=== PATIENT | male | born 1990 | race Caucasian/White ===

== ENCOUNTER 2020-08-16 21:32 | Emergency (ER) | payer OTHER, SELFPAY ==
--- NOTE | 2020-08-16 21:37 | ED.GIBLEED ---
HPI - GI Bleed General Chief complaint: Fever Stated complaint: states rectal bleeding past week, fever Time Seen by Provider: 08/16/20 21:35 Source: patient Mode of arrival: Ambulatory Limitations: no limitations History of Present Illness HPI Narrative: 22-year-old male nonsmoker with noncontributory medical history presents with a chief complaint of painless bright red bleeding per rectum with bowel movements over the course of the past week. He denies any pain. He is not dizzy nor weak or lightheaded. He denies any runny nose, sore throat or cough. Denies chest pain or shortness of breath. He denies any recent travel, antibiotic use or exposure to bad food. He states that over the course of the day he began feeling the chills and getting achy and noticed his temperature reached 102.6. at this point he decided to come see us in the ED for evaluation. MD complaint: blood streaked stool Onset (ago): day(s) Severity: mild Relieving factors: none Exacerbating factors: none Associated symptoms: fever and chills Treatments Prior to Arrival: none Related Data Allergies Allergy/AdvReac Type Severity Reaction Status Date / Time No Known Drug Allergies Allergy Verified 08/17/20 00:13 Review of Systems Constitutional Constitutional: Reports chills, Denies fatigue, Reports fever(s), Denies frequent falls, Denies lethargy and Denies weakness Eyes Eyes: Denies change in vision, Denies eye discharge, Denies irritation and Denies loss of vision ENT Ears, Nose, Mouth, and Throat: Denies change in voice, Denies dizziness, Denies neck pain, Denies sore throat and Denies throat swelling Cardiovascular Cardiovascular: Denies chest pain, Denies irregular heart rhythm, Denies lightheadedness, Denies palpitations, Denies dyspnea, Denies dyspnea on exertion and Denies orthopnea Respiratory Respiratory: Denies cough, Denies dyspnea, Denies dyspnea on exertion and Denies wheezing Gastrointestinal Gastrointestinal: Denies abdominal pain, Reports hematochezia, Denies change in bowel habits, Denies diarrhea, Denies nausea and Denies vomiting Musculoskeletal Musculoskeletal: Denies neck pain and Denies numbness Integumentary/Breasts Skin/Breast: Denies pruritus, Denies erythema, Denies rash and Denies wounds Neurologic Neurologic: Denies behavioral changes, Denies confusion, Denies dizziness, Denies frequent falls, Denies loss of vision, Denies numbness and Denies weakness Psychiatric Psychiatric: Denies anxiety, Denies behavioral changes, Denies confusion, Denies depression, Denies homicidal ideation and Denies suicidal ideation Endocrine Endocrine: Denies fatigue, Denies flushing and Denies palpitations Hematologic/Lymphatic Hematologic/Lymphatic: Denies easy bruising Allergic/Immunologic Allergic/Immunologic: Denies urticaria, Denies throat swelling and Denies wheezing Patient History Social History Smoking Status: Never smoker Smoking Status: Never smoker alcohol intake frequency: 0-2 drinks per day Substance Use Type: does not use Exam Initial Vital Signs Initial Vital Signs: Vital Signs Temperature 102.6 F H 08/16/20 22:03 Pulse Rate 146 H 08/16/20 22:03 Respiratory Rate 18 08/16/20 22:03 Blood Pressure 146/85 H 08/16/20 22:03 Pulse Oximetry 97 08/16/20 22:03 Const General: cooperative and well developed Nutritional Appearance: well nourished [facility] Head: normocephalic and atraumatic Ears: external ears normal and TM's normal bilaterally Nose: external nose normal and No nasal discharge Face and sinus: sinuses nontender, face symmetric, no sinus tenderness and No dry mucous membranes Mouth: oral mucosae normal and moist mucous membranes Teeth and gingiva: dentition normal Throat: tonsils normal and uvula midline Eyes General: appearance normal, both eyes and all related structures Eyelids: eyelids normal Conjunctivae: conjunctivae normal Sclera: sclerae normal Pupils: PERRL EOM: EOM intact bilaterally Neck Neck: normal visual inspection, trachea midline, No lymphadenopathy, No midline deformity and No JVD Lymphatic: No lymphedema Chest Chest: normal inspection of the chest Resp Effort & Inspection: normal respiratory effort, able to speak in complete sentences, no respiratory distress and no use of accessory muscles Auscultation: clear to auscultation bilaterally, no rales, no rhonchi and no wheezes Cardio Rate: regular rate Rhythm: regular rhythm Heart Sounds: no click, no gallops, no murmurs and no rubs Pulses: normal peripheral pulses GI Inspection: non-distended Palpation: soft, no hepatosplenomegaly, No guarding, No pulsatile mass and No tender Auscultation: normal bowel sounds Back/Spine/Pelvis Back: No CVA tenderness Cervical Spine: cervical ROM normal and No pain with cervical ROM Thoracic/Lumbar Spine: thoracic and lumbar spine normal to inspection Skin General: no rashes or lesions noted, No jaundice and No petechiae Neuro General: patient alert, patient oriented x3, gait normal and no focal motor deficits Speech: speech normal Extrem General: full ROM, no clubbing, cyanosis or edema, no pedal edema and no calf tenderness Psych Appearance: well kempt Mental Status: mental status grossly normal Attitude: cooperative Thought Content: normal and suicidality Judgment: judgment good Course Orders Ordered: ED Orders 08/16/20 22:04 EKG-12 Lead Stat 08/16/20 22:15 Complete Blood Count AUTO DIFF Stat Comprehensive Metabolic Panel Stat Lactate (Lactic Acid) Stat Lipase Stat 08/16/20 22:30 Blood Culture Stat 08/17/20 00:56 D Dimer Stat 08/17/20 01:19 CT angio chest PE protocol Stat 08/17/20 01:20 CT abdomen pelvis w con Stat 08/17/20 03:20 GI Panel (Film Array) Stat Sodium Chloride (Normal Saline 0.9%) 1,000 mls @ 125 mls/hr IV CONT KAYE Last Admin: 08/17/20 00:04 Dose: 125 mls/hr Documented by: Infusion: 08/17/20 00:04 Dose: 125 mls/hr Documented by: Admin: 08/16/20 22:15 Dose: 125 mls/hr Documented by: GLO Discontinued Medications Acetaminophen (Acetaminophen 325 Mg Tablet) 975 mg PO NOW ONE Stop: 08/17/20 03:00 Last Admin: 08/17/20 03:09 Dose: 975 mg Documented by: JUNIOR Sodium Chloride (Normal Saline 0.9%) 1,000 mls @ 1,000 mls/hr IV BOLUS ONE Stop: 08/17/20 00:41 Last Admin: 08/17/20 03:09 Dose: 1,000 mls/hr Documented by: JUNIOR Levofloxacin (Levaquin) 500 mg in 100 mls @ 100 mls/hr IV NOW ONE Stop: 08/17/20 03:58 Last Infusion: 08/17/20 04:40 Dose: 0 mls/hr Documented by: Admin: 08/17/20 03:09 Dose: 100 mls/hr Documented by: JUNIOR Ketorolac Tromethamine (Ketorolac 30 Mg/Ml Vial) 15 mg IV NOW ONE Stop: 08/16/20 23:43 Last Admin: 08/17/20 00:05 Dose: 15 mg Documented by: JUNIOR Ketorolac Tromethamine (Ketorolac 30 Mg/Ml Vial) 15 mg IV NOW ONE Stop: 08/17/20 03:00 Last Admin: 08/17/20 03:09 Dose: 15 mg Documented by: JUNIOR Vital Signs Vital signs: Vital Signs - 8 hr 08/16/20 22:03 08/16/20 23:13 08/16/20 23:30 Temperature 102.6 F H Pulse Rate 146 H 122 H 129 H Respiratory Rate 18 Blood Pressure 146/85 H Pulse Oximetry 97 100 100 08/17/20 00:00 08/17/20 00:08 08/17/20 00:33 Temperature 100.4 F H Pulse Rate 122 H 125 H 119 H Respiratory Rate 16 Blood Pressure 116/66 Pulse Oximetry 99 100 92 08/17/20 01:00 08/17/20 01:30 08/17/20 02:00 Temperature Pulse Rate 123 H 118 H 115 H Respiratory Rate Blood Pressure Pulse Oximetry 98 98 96 08/17/20 02:30 08/17/20 03:00 Temperature 101.8 F H Pulse Rate 118 H 112 H Respiratory Rate Blood Pressure Pulse Oximetry 97 97 MDM - GI Bleed Lab Data Result diagrams: 08/16/20 22:15 08/16/20 22:15 Labs: Lab Results 08/16/20 08/16/20 08/16/20 Range/Units 22:15 22:15 22:15 WBC 3.1 L (4.5-11.0) X10^3/uL RBC 4.72 (4.5-5.9) X10^6/uL Hgb 14.5 (13.5-17.5) g/dL Hct 42.5 (41-53) % MCV 89.9 (80-100) fL MCH 30.6 (26-34) PG MCHC 34.1 (30-36) % RDW 13.9 (11.6-14.8) % Plt Count 128 L (150-400) X10^3/uL Neut % (Auto) 76.4 H (50-75) % Lymph % (Auto) 12.9 L (25-40) % [place] % (Auto) 10.1 (3-14) % Eos % (Auto) 0.3 L (2-4) % Baso % (Auto) 0.3 (0-2) % Neut # (Auto) 2300 (9676-7314) /uL Lymph # (Auto) 400 L (7187-2222) /uL [place] # (Auto) 300 (0-900) /uL Eos # (Auto) 0 (0-450) /uL Baso # (Auto) 0 (0-100) /uL D-Dimer (<230) ng/mL Sodium 141 (137-145) mmol/L Potassium 4.1 (3.4-5.1) mmol/L Chloride 105 (98-107) mmol/L Carbon Dioxide 25 (22-32) mmol/L BUN 11 (9-20) mg/dL Creatinine 1.05 (0.66-1.25) mg/dL Estimated GFR > 60.0 (>60) mL/min BUN/Creatinine Ratio 10.5 (6-22) Glucose 104 H (70-100) mg/dL Lactate 1.3 (0.7-2.1) mmol/L Calcium 9.2 (8.4-10.2) mg/dL Total Bilirubin 0.7 (0.2-1.3) mg/dL AST 47 (17-59) IU/L ALT 102 H (<50) IU/L Alkaline Phosphatase 51 (38-126) U/L Total Protein 7.9 (6.3-8.2) g/dL Albumin 4.7 (3.5-5.0) g/dL Globulin 3.2 (1.7-4.1) g/dL Albumin/Globulin Ratio 1.5 (1.0-2.8) Lipase 75 (23-300) U/L Stl C. cayetanensis PCR (Not Detect) Stool Rotavirus (PCR) (Not Detect) Stool Adenovirus (PCR) (Not Detect) Stool Astrovirus (PCR) (Not Detect) Stool Cryptosporidium PCR (Not Detect) Stl E.coli Shiga Tox PCR (Not Detect) St Sh/Enteroin Ecoli PCR (Not Detect) Stool E coli O157 PCR Stl Enterotoxigenic E PCR (Not Detect) Stool EPEC (PCR) (Not Detect) Stl E. histolytica PCR (Not Detect) Stool Giardia Lamblia PCR (Not Detect) Stool Sapovirus (PCR) (Not Detect) Stl P. shigelloides PCR (Not Detect) St Y.enterocolitica PCR (Not Detect) Stool Vibrio (PCR) (Not Detect) Stl Vibrio cholerae PCR (Not Detect) Stl Enteroaggr Ecoli PCR (Not Detect) Stl Norovirus GI/GII PCR (Not Detect) Campylobacter (PCR) (Not Detect) C. difficile Tox (PCR) (Not Detect) Salmonella (PCR) (Not Detect) 08/16/20 08/17/20 Range/Units 22:15 03:20 WBC (4.5-11.0) X10^3/uL RBC (4.5-5.9) X10^6/uL Hgb (13.5-17.5) g/dL Hct (41-53) % MCV (80-100) fL MCH (26-34) PG MCHC (30-36) % RDW (11.6-14.8) % Plt Count (150-400) X10^3/uL Neut % (Auto) (50-75) % Lymph % (Auto) (25-40) % [place] % (Auto) (3-14) % Eos % (Auto) (2-4) % Baso % (Auto) (0-2) % Neut # (Auto) (8053-8638) /uL Lymph # (Auto) (8983-2034) /uL [place] # (Auto) (0-900) /uL Eos # (Auto) (0-450) /uL Baso # (Auto) (0-100) /uL D-Dimer 292 H (<230) ng/mL Sodium (137-145) mmol/L Potassium (3.4-5.1) mmol/L Chloride (98-107) mmol/L Carbon Dioxide (22-32) mmol/L BUN (9-20) mg/dL Creatinine (0.66-1.25) mg/dL Estimated GFR (>60) mL/min BUN/Creatinine Ratio (6-22) Glucose (70-100) mg/dL Lactate (0.7-2.1) mmol/L Calcium (8.4-10.2) mg/dL Total Bilirubin (0.2-1.3) mg/dL AST (17-59) IU/L ALT (<50) IU/L Alkaline Phosphatase (38-126) U/L Total Protein (6.3-8.2) g/dL Albumin (3.5-5.0) g/dL Globulin (1.7-4.1) g/dL Albumin/Globulin Ratio (1.0-2.8) Lipase (23-300) U/L Stl C. cayetanensis PCR Not detected (Not Detect) Stool Rotavirus (PCR) Not detected (Not Detect) Stool Adenovirus (PCR) Not detected (Not Detect) Stool Astrovirus (PCR) Not detected (Not Detect) Stool Cryptosporidium PCR Not detected (Not Detect) Stl E.coli Shiga Tox PCR Not detected (Not Detect) St Sh/Enteroin Ecoli PCR Not detected (Not Detect) Stool E coli O157 PCR Not Reportable Stl Enterotoxigenic E PCR Not detected (Not Detect) Stool EPEC (PCR) Not detected (Not Detect) Stl E. histolytica PCR Not detected (Not Detect) Stool Giardia Lamblia PCR Not detected (Not Detect) Stool Sapovirus (PCR) Not detected (Not Detect) Stl P. shigelloides PCR Not detected (Not Detect) St Y.enterocolitica PCR Not detected (Not Detect) Stool Vibrio (PCR) Not detected (Not Detect) Stl Vibrio cholerae PCR Not detected (Not Detect) Stl Enteroaggr Ecoli PCR Not detected (Not Detect) Stl Norovirus GI/GII PCR Not detected (Not Detect) Campylobacter (PCR) Not detected (Not Detect) C. difficile Tox (PCR) Not detected (Not Detect) Salmonella (PCR) Not detected (Not Detect) Urine Dip Bedside Urine Glucose Negative Bedside Urine Bilirubin - Negative Bedside Urine Ketone - Negative Urine Specific [place] 1.015 Bedside Urine Occult Blood - Negative Bedside Urine pH 6 Bedside Urine Protein - Negative Bedside Urine Urobilinogen - Negative Bedside Urine Nitrite - Negative Bedside Urine Leukocytes - Negative Esterase Imaging Data CT scan - chest: Radiologist's Impression: No pneumonia or PE CT scan - abdomen/pelvis: Radiologist's Impression: No acute findings. No infectious or inflammatory changes MDM Narrative Medical decision making narrative: 30-year-old male with painless bright red rectal bleeding and fever with tachycardia has had a very extensive evaluation with largely limited results. For the duration of his visit he had essentially no complaints, no headache or neck pain, chest pain or shortness of breath, no abdominal pain or urinary complaints. No rash or skin pain. Physical exam is quite unremarkable other than tachycardia. Over the course of the visit, with a few L of fluid and fever control his heart rate is down into the upper 90s and low 100s. Multiple diagnoses considered such as pneumonia versus COVID versus other viral syndrome versus bowel infection versus appendicitis versus urine infection versus infectious diarrhea such as Shigella, Campylobacter, E coli or others. These are all thought unlikely lack of diagnostic findings or physical exam and elements of the patient's history. Meningitis and cerebrospinal fluid infection considered but thought unlikely given lack of headache, neck pain, confusion. Patient plans to leave here and had back to [place], he has established with a primary care provider and will call for close follow-up. He understands the importance of close follow-up and that even though we did an extensive workup we may be too early in the process to be able to see a clear diagnosis. We talked extensively about return precautions which he understands as evidenced by his ability to verbalize them back to me. He has had his questions answered to his apparent satisfaction Critical Care Time Critical Care Time Critical Care Time: Yes Total Critical Care Time: 30 Attestation: The high probability of a clinically significant, sudden or life threatening deterioration of the [CV] system(s) required my full and direct attention, intervention and personal management. The aggregate critical care time was [30] minutes. This time is in addition to time spent performing reported procedures but includes the following: [x] Data Review and interpretation [x Patient assessment and monitoring of vital signs [x] Documentation [x] Medication orders and management Discharge Plan Departure Patient Disposition: Home Clinical Impression: Fever of unknown origin, Bright red rectal bleeding Instructions: DI for Fever (Symptom) -- Adult Activity Restrictions/Additional Instructions: *You have been diagnosed with [fever and bright red rectal bleeding without evidence of an obvious cause based the extensive workup we performed.] *What to do: *Please continue to take your regular medications as directed. [ ] New medication prescriptions sent to your pharmacy: [ ] [ ] New medication written as a paper prescription [ x] No new medications given *Please follow up with your primary care provider in 2-3 days, call for an appointment. Let them know you were seen in the Emergency Department and that we ask that you be seen in follow up. We will electronically transmit a record of today's note if your PCP is in our system *If you do not have a primary care provider please contact the [facility] Resource line at [phone]. They will ask some questions about your medical history and help get you set up with a doctor in the community. *Return to Emergency Department if you should have any new, worsening or concerning symptoms, such as [fever greater than 102 F, shaking chills, development of severe pain, persistent vomiting or other bothersome symptoms]
[2020-08-16 22:03] VITALS: BP 146/85; PULSE 146; RESP 18; TEMP 39.2; O2SAT 97; BMI 31.3
[2020-08-16] MEDS: SODIUM CHLORIDE 0.9% 1,000 ML 125 ML IV (22:15)
[2020-08-16 22:28] LABS: Add Manual Diff / Slide Review NO; Basophils Absolute Auto 0 /uL (0-100); Basophils Percent Auto 0.3 % (0-2); Eosinophils Absolute Auto 0 /uL (0-450); Eosinophils Percent Auto 0.3 % (2-4); Hematocrit 42.5 % (41-53); Hemoglobin 14.5 g/dL (13.5-17.5); Lymphocytes Absolute Auto 400 /uL (1100-4500); Lymphocytes Percent Auto 12.9 % (25-40); Mean Corpuscular HGB Conc 34.1 % (30-36); Mean Corpuscular Hemoglobin 30.6 PG (26-34); Mean Corpuscular Volume 89.9 fL (80-100); Monocytes Absolute Auto 300 /uL (0-900); Monocytes Percent Auto 10.1 % (3-14); Neutrophils Absolute Auto 2300 /uL (1500-7000); Neutrophils Percent Auto 76.4 % (50-75); Platelet Count 128 X10^3/uL (150-400); Red Blood Cell Count 4.72 X10^6/uL (4.5-5.9); Red Cell Distribution Width 13.9 % (11.6-14.8); White Blood Cell Count 3.1 X10^3/uL (4.5-11.0)
[2020-08-16 22:34] LABS: Lactate (Lactic Acid) 1.3 mmol/L (0.7-2.1)
[2020-08-16 22:35] LABS: Alanine Aminotransferase 102 IU/L (<50); Albumin 4.7 g/dL (3.5-5.0); Albumin Globulin Ratio 1.5 (1.0-2.8); Alkaline Phosphatase 51 U/L (38-126); Aspartate Aminotransferase 47 IU/L (17-59); BUN Creatinine Ratio 10.5 (6-22); Bilirubin Total 0.7 mg/dL (0.2-1.3); Blood Urea Nitrogen 11 mg/dL (9-20); Calcium 9.2 mg/dL (8.4-10.2); Carbon Dioxide 25 mmol/L (22-32); Chloride 105 mmol/L (98-107); Estimated Glomerular Filt Rate > 60.0 mL/min (>60); Globulin 3.2 g/dL (1.7-4.1); Glucose 104 mg/dL (70-100); HEMOLYSIS < 15 (0-50); Lipase 75 U/L (23-300); Potassium 4.1 mmol/L (3.4-5.1); Sodium 141 mmol/L (137-145); Total Protein 7.9 g/dL (6.3-8.2)
[2020-08-16 23:13] VITALS: PULSE 122; O2SAT 100
[2020-08-16 23:30] VITALS: PULSE 129; O2SAT 100
[2020-08-17] VITALS (10 sets, daily range): BP systolic 116–133; BP diastolic 66–79; PULSE 102–125; RESP 15–16; TEMP 37.3–38.8; O2SAT 92–100
[2020-08-17] MEDS: SODIUM CHLORIDE 0.9% 1,000 ML 125 ML IV (00:04)
[2020-08-17] MEDS: KETOROLAC 30 MG/ML VIAL 15 MG IV ×2 (00:05→03:09)
[2020-08-17 01:17] LABS: D Dimer 292 ng/mL (<230)
--- NOTE | 2020-08-17 01:19 | DI.CT.S_ITS ---
PROCEDURE: CT ANGIO CHEST PE PROTOCOL INDICATIONS: fever, tachycardia, critical D Dimer TECHNIQUE: After the administration of intravenous contrast, 2 mm thick sections acquired from the pulmonary apices to the posterior costophrenic angles. 3-dimensional maximum intensity projection (MIP) coronal and sagittal reformats were then acquired through the thorax. For radiation dose reduction, the following was used: automated exposure control, adjustment of mA and/or kV according to patient size. COMPARISON: [facility], CT, CT ABDOMEN PELVIS W CON, 08/17/2020, 1:38. FINDINGS: Image quality: Excellent. Pulmonary arteries: The bolus of the contrast injection is suboptimal. The main pulmonary artery measures approximately 140 Hounsfield units. Pulmonary artery densities are greater than 250 Hounsfield units are considered to be ideal for evaluation of pulmonary embolism. However, no large or central pulmonary emboli are seen on these images. No pulmonary emboli are seen more distally, although sensitivity for detection of such is limited on this study. Lungs and pleura: Lungs are clear. No pleural effusions or pneumothorax. Central and peripheral airways are patent. Mediastinum: Heart size is normal, without pericardial effusion. No mediastinal or hilar adenopathy. Thoracic aorta is normal in caliber and enhancement. Esophagus is normal in caliber, without hiatal hernia. Bones and chest wall: No suspicious bony lesions. Ribs and thoracic spine appear intact throughout. Thyroid gland demonstrates no significant abnormality. No axillary or supraclavicular adenopathy. Abdomen: Diffuse fatty liver infiltration is noted. The spleen is enlarged, measuring 14.2 cm in greatest axial dimension The visualized portions of the upper abdominal structures are otherwise unremarkable for imaging technique. IMPRESSION: Limited study, without findings of large or central pulmonary embolism. Incidental note is made of: Mild splenomegaly Fatty liver infiltration Note: No significant discrepancy from the preliminary report. Dictated by: Capo Laguna M.D. on 08/17/2020 at 6:06 Approved by: Capo Laguna M.D. on 08/17/2020 at 6:09
--- NOTE | 2020-08-17 01:20 | DI.CT.S_ITS ---
PROCEDURE: CT ABDOMEN PELVIS W CON INDICATIONS: fever, septic, bloody stool TECHNIQUE: After the administration of intravenous contrast, 5 mm thick sections acquired from the diaphragm to the symphysis. 5 mm coronal and sagittal reformats were acquired. For radiation dose reduction, the following was used: automated exposure control, adjustment of mA and/or kV according to patient size. COMPARISON: [facility], CT, CT ANGIO CHEST PE PROTOCOL, 08/17/2020, 1:38. FINDINGS: Image quality: Excellent. ABDOMEN: Lung bases: Lung bases are clear. Heart size is normal. Solid organs: Liver is normal in size and enhancement. Diffuse fatty liver infiltration is noted. Gallbladder is largely collapsed at the time of this study. Biliary system is non dilated. Pancreas enhances normally. Spleen is mildly enlarged, measuring 14.2 cm in greatest axial dimension. No adrenal nodules. Kidneys demonstrate normal size and enhancement, without hydronephrosis. Peritoneum and bowel: Bowel loops demonstrate normal wall thickness and caliber. No free fluid or air. A normal appendix is seen. Nodes and vessels: No retroperitoneal or mesenteric adenopathy by size criteria. Aorta and inferior vena cava are normal in size. Incidental note is made of a circumaortic left renal vein. Miscellaneous: No ventral hernias. PELVIS: Genitourinary: Bladder wall thickness is normal. Miscellaneous: No inguinal hernias or adenopathy. Bones: No suspicious bony lesions. No vertebral body compression fractures. Mild levoconvex scoliotic curvature is noted. IMPRESSION: No imaging explanation is found for this patient's presenting symptoms. Normal appendix. Incidental note is made of: Fatty liver infiltration Mild splenomegaly Circumaortic left renal vein Mild levoconvex scoliotic curvature Note: No significant discrepancy from the preliminary report. Dictated by: Capo Laguna M.D. on 08/17/2020 at 6:09 Approved by: Capo Laguna M.D. on 08/17/2020 at 6:11
[2020-08-17] MEDS: levoFLOXacin 500 MG/100 ML PIGGYBACK 100 MG IV (03:09)
[2020-08-17] MEDS: SODIUM CHLORIDE 0.9% 1,000 ML 1000 ML IV (03:09)
[2020-08-17] MEDS: ACETAMINOPHEN 325 MG TABLET 975 MG PO (03:09)
[2020-08-17 04:49] LABS: Campylobacter Not Detected (Not Detect); Clostridium difficile toxin AB Not Detected (Not Detect); Enteroaggregative E.coli Not Detected (Not Detect); Enteropathogenic E.coli Not Detected (Not Detect); Enterotoxigenic E.coli It/st Not Detected (Not Detect); Plesiomonsa shigelloides Not Detected (Not Detect); Salmonella Not Detected (Not Detect); Shiga-like toxin-prod E.coli Not Detected (Not Detect); Vibrio Not Detected (Not Detect); Vibrio cholerae Not Detected (Not Detect); Yersinia enterocolitica Not Detected (Not Detect)
[2020-08-17 04:50] LABS: Adenovirus F 40/41 Not Detected (Not Detect); Astrovirus Not Detected (Not Detect); Cryptosporidium Not Detected (Not Detect); Cyclospora cayetanensis Not Detected (Not Detect); Entamoeba histolytica Not Detected (Not Detect); Giardia lamblia Not Detected (Not Detect); Norovirus GI/GII Not Detected (Not Detect); Rotavirus A Not Detected (Not Detect); Sapovirus Not Detected (Not Detect); Shigella/Enteroinvasive E.coli Not Detected (Not Detect)
== END 2020-08-17 05:15 | disposition home or self-care (01) ==
PROVIDERS: Emergency Provider Emergency Medicine
DX: R50.9 Fever, unspecified (principal); K62.5 Hemorrhage of anus and rectum
CPT/HCPCS: 36415; 71275; 74177; 80053; 81003; 83605; 83690; 85025; 85379; 87040; 87507; 93005; 93010; 96361; 96365; 96366; 99284; 99291; J1885; J1956; Q9967